=== PATIENT | male | born 1965 | race Caucasian/White ===

== ENCOUNTER 2017-11-09 08:56 | Day surgery (SDC) | payer OTHER ==
[~2017-11-09] VITALS: Ht 180.3 cm; Wt 103.4 kg
[~2017-11-09 08:56] MED LIST: ASPIRIN81 MG PO; MAXALT10 MG PO
[2017-11-09 11:19] VITALS: BP 97/58
== END 2017-11-09 11:35 | disposition home or self-care (01) | DRG 392 ==
LOC: ENDO 08:56
PROVIDERS: ATTEND Internal Medicine Gastroenterology
PROC: 0DB48ZX Excision of Esophagogastric Junction, Via Natural or Artificial Opening Endoscopic, Diagnostic (ICD-10-PCS; principal; 2017-11-09)
PROC: 0DJD8ZZ Inspection of Lower Intestinal Tract, Via Natural or Artificial Opening Endoscopic (ICD-10-PCS; 2017-11-09)
DX: R14.0 Abdominal distension (gaseous) (principal); K21.9 Gastro-esophageal reflux disease without esophagitis; K44.9 Diaphragmatic hernia without obstruction or gangrene; K57.30 Diverticulosis of large intestine without perforation or abscess without bleeding; K64.8 Other hemorrhoids; K29.70 Gastritis, unspecified, without bleeding; K64.4 Residual hemorrhoidal skin tags; Z87.11 Personal history of peptic ulcer disease; Z80.0 Family history of malignant neoplasm of digestive organs

== ENCOUNTER 2018-06-14 16:54 | Emergency (ER) | payer OTHER ==
[~2018-06-14] VITALS: Ht 180.3 cm; Wt 100.0 kg
[2018-06-14] MEDS ORDERED: LISINOPRIL10 MG PO (17:06)
[2018-06-14 17:30] LABS: HEMATOCRIT 45.6 % (39.0-50.0); HEMOGLOBIN 15.5 g/dl (14.0-18.0); IMMATURE GRANULOCYTES 0.1 % (0.0-5.0); MEAN CELL VOLUME 91.9 fL CALC (80.0-100.0); MEAN CORPUSCULAR HGB 31.3 pG CALC (26.0-32.0); NEUT# 4.56 thou/uL (1.82-7.42); RED BLOOD COUNT 4.96 mill/uL (4.70-6.10); RED CELL DISTRI WIDTH 12.8 % (11.5-15.5)
[2018-06-14 17:48] LABS: ANION GAP 13 (6-22 (CALC)); BUN 15 mg/dL (9-20); BUN/CREATININE RATIO 14 (12-20 (CALC)); CARBON DIOXIDE 26 mmol/l (22-30); CHLORIDE 104 mmol/l (95-108); CREATININE 1.1 mg/dL (0.7-1.3); GFR > 60 ML/MIN (>=60 (CALC)); GFR FOR AFR.AMER. > 60 ML/MIN (>=60 (CALC)); POTASSIUM 4.3 mmol/l (3.5-5.1); SODIUM 140 mmol/l (137-146)
[2018-06-14 18:53] LABS: TSH, 3RD GENERATION 1.58 uIU/mL (0.47 - 4.68)
[2018-06-14 19:40] VITALS: BP 103/57
== END 2018-06-14 19:55 | disposition home or self-care (01) | DRG 948 ==
LOC: ED 16:54
PROVIDERS: Family Medicine
DX: R53.83 Other fatigue (principal); I10 Essential (primary) hypertension; R51 Headache

== ENCOUNTER 2019-12-15 10:05 | Observation (INO) | payer OTHER ==
[~2019-12-15] VITALS: Ht 180.3 cm; Wt 98.9 kg
[~2019-12-15 10:05] MED LIST changes: +LISINOPRIL10 MG PO
--- NOTE | 2019-12-15 10:25 | NUR ---
to room 10 via wc in stablwe condition.
[2019-12-15] MEDS ORDERED: NORVASC5 M1 PO (10:26)
[2019-12-15] MEDS ORDERED: CARVEDILOL6.25 MG PO (10:26)
[2019-12-15] MEDS ORDERED: LASIX20 MG PO (10:27)
[2019-12-15] MEDS ORDERED: LEXAPRO10 MG PO (10:28)
[2019-12-15 10:39] LABS: HEMATOCRIT 44.3 % (39.0-50.0); HEMOGLOBIN 15.2 g/dl (14.0-18.0); IMMATURE GRANULOCYTES 0.2 % (0.0-5.0); MEAN CELL VOLUME 89.5 fL CALC (80.0-100.0); MEAN CORPUSCULAR HGB 30.7 pG CALC (26.0-32.0); MEAN CORPUSCULAR HGB CONC 34.3 g/dL CAL (32.0-36.0); NEUT# 2.75 thou/uL (1.82-7.42); RED BLOOD COUNT 4.95 mill/uL (4.70-6.10)
--- NOTE | 2019-12-15 10:49 | NUR ---
PT RESTING ON STRETCHER. MONITORS IN PLACE. PT REPORTS PAIN FREE AT THIS TIME BUT CAME TO ED FOR SHARP INTERMITTENT CHEST PAIN WITH NAUSEA THIS MORNING. PT AO X 3. SKIN PINK WARM AND DRY. DAUGHTER AT BEDSIDE
[2019-12-15 10:53] LABS: ALBUMIN 4.8 g/dL (3.2-5.0); ALKALINE PHOSPHATASE 58 u/l (38-126); ANION GAP 12 (6-22 (CALC)); BILIRUBIN, TOTAL 0.8 mg/dL (0.0-1.4); BUN 14 mg/dL (9-20); BUN/CREATININE RATIO 13 (12-20 (CALC)); CARBON DIOXIDE 26 mmol/l (22-30); CHLORIDE 100 mmol/l (95-108); CREATININE 1.1 mg/dL (0.7-1.3); GFR > 60 ML/MIN (>=60 (CALC)); GFR FOR AFR.AMER. > 60 ML/MIN (>=60 (CALC)); POTASSIUM 4.2 mmol/l (3.5-5.1); SGOT/AST 37 u/l (17-59); SODIUM 134 mmol/l (137-146); TOTAL PROTEIN 8.1 g/dL (6.3-8.2)
[2019-12-15 10:54] LABS: AMYLASE 61 u/l (30-110); LIPASE 112 u/l (23-300)
[2019-12-15 11:05] LABS: MYOGLOBIN 69 ng/mL (0 - 121)
[2019-12-15 11:52] LABS: URINE BILIRUBIN - DIPSTICK NEGATIVE (NEGATIVE); URINE BLOOD DIPSTICK NEGATIVE (NEGATIVE); URINE COLOR YELLOW; URINE GLUCOSE - DIPSTICK NEGATIVE (NEGATIVE); URINE KETONE NEGATIVE (NEGATIVE); URINE LEUK ESTERASE NEGATIVE (NEGATIVE); URINE NITRITE - DIPSTICK NEGATIVE (Negative); URINE PH 7.5 (4.5-8.0); URINE PROTEIN - DIPSTICK NEGATIVE (NEG-TRACE); URINE SPECIFIC GRAVITY 1.015; URINE UROBILINOGEN - DIPSTICK 0.2 E.U./dL (0.2)
--- NOTE | 2019-12-15 12:30 | NUR ---
SPOKE TO PATIENT'S REGARDING VISITING HOURS.
--- NOTE | 2019-12-15 12:45 | NUR ---
PT GIVEN LUNCH TRAY
--- NOTE | 2019-12-15 13:44 | NUR ---
MED SURG UNABLE TO TAKE REPORT AT THIS TIME
--- NOTE | 2019-12-15 14:02 | NUR ---
REPORT GIVEN TO MAU CELESTININSURANCE ADJUSTER
--- NOTE | 2019-12-15 14:16 | NUR ---
PT TO MED SURG ROOM 267 VIA WHEELCHAIR ACCOMPANIED BY ER NURSE. PT AMBULATED TO BED WITH STEADY GAIT. PT IS ALERT AND ORIENTED X3. ADMISSION ASSESSMENT COMPLETED AT THIS TIME. IV PATENT X1. ORIENTED PT TO ROOM AND UNIT. CALL LIGHT IN REACH. WILL CONTINUE TO MONITOR
--- NOTE | 2019-12-15 14:20 | NUR ---
PT TAKEN VIA WHEELCHAIR TO MED SURG. TELEMETRY IN PLACE
[2019-12-15 14:30] VITALS: BP 124/73
--- NOTE | 2019-12-15 16:03 | NUR ---
PT SITTING UP IN BED WATCHING TV. RESP ARE EVEN AND UNLABORED. NO DISTRESS NOTED. CALL LIGHT IN REACH. WILL CONTINUE TO MONITOR.
--- NOTE | 2019-12-15 16:05 | NUR ---
PT TO RADIOLOGY VIA WHEELCHAIR IN STABLE CONDITION.
--- NOTE | 2019-12-15 16:25 | NUR ---
PT RETURNED FROM RADIOLOGY VIA WHEELCHAIR AT THIS TIME
[2019-12-15 19:06] VITALS: BP 99/65
--- NOTE | 2019-12-15 19:50 | NUR ---
ASSESSMENT COMPLETED. AT BEDSIDE. NO RESP DISTRESS NOTED. PT. C/O ACID REFLUX AND DENIES CP. UPDATED ON POC. PT. REPORTS HE TAKES LEXAPRO AT NIGHT NOT IN AM, WILL ADDRESS THIS. IV SITE PATENT AND INFUSING ORDERED IVF WELL. ENCOURAGED TO CALL FOR ANY NEEDS. CALL LIGHT IS IN REACH. WILL CONTINUE TO MONITOR.
[2019-12-15 20:53] VITALS: BP 102/62
[2019-12-15 23:56] VITALS: BP 98/60
--- NOTE | 2019-12-16 00:05 | NUR ---
DENIES NEEDS/PAIN. PHLEBOTOMY IN AT BEDSIDE. ENCOURAGED TO CALL FOR ANY NEEDS.
--- NOTE | 2019-12-16 03:55 | NUR ---
RESTING IN BED WITH EYES CLOSED; RESP. EVEN AND UNLABORED. CALL LIGHT IS IN REACH.
[2019-12-16 04:52] VITALS: BP 101/61
[2019-12-16 06:36] LABS: CHOLESTEROL HDL RATIO 3.1 (<4.4 (CALC))
--- NOTE | 2019-12-16 07:30 | NUR ---
REPORT RECEIVED FROM FAWAD CRAWFORD. PT RESTING IN BED SEMI FOWLERS; ALERT AND OREINTED. DENIES PAIN, DIZZINESS, SOB, NUMBNESS, AND NAUSEA. RESPIRATIONS EVEN AND UNLABORED ON ROOM AIR. DOES NOT REPORT ANY SYMPTOMS CURRENTLY. PT DOES HAVE FACIAL FLUSHING. LUNGS ARE CLEAR. VSS. IV FLUIDS INFUSING WITHOUT DIFFICULTY; IV SITE APPEARS HEALTHY. TELE ON. PLAN OF CARE REVIEWED. PT ENCOURAGED TO VERBALIZE CONCERNS. STATES UNDERSTANDING. SAFETY MEASURES IN PLACE. CALL LIGHT WITHIN REACH.
[2019-12-16 07:47] VITALS: BP 112/68
[2019-12-16 09:28] VITALS: BP 110/69
--- NOTE | 2019-12-16 09:29 | NUR ---
PT REPORTS A LIGHTHEADEDNESS AND DESCRIBES A "SWIMMING SENSATION" WHEN TURNING HEAD QUICKLY. DENIES DIZZINESS, SPINNING SENSATIONS, OR NAUSEA. AT BEDSIDE. DECLINES AMLODIPINE AND REQUESTS FOR HIS BP TO BE RETAKEN. BP 110/69 HR 63 SPO2 97%. STATES THAT HIS BLOOD PRESSURE IS USUALLY ALWAYS HIGH. INSTRUCTED TO USE CALL LIGHT FOR ASSISTANCE AND REINFORCED FALL PRECAUTIONS.
--- NOTE | 2019-12-16 10:00 | NUR ---
DR. GRAY AT BEDSIDE FOR EVAL AND TO DISCUSS DISCHARGE PLANS.
[2019-12-16 11:05] VITALS: BP 120/67
[2019-12-16] MEDS ORDERED: PANTOPRAZOLE SO40 M1 PO (12:12)
[2019-12-16] MEDS ORDERED: HYDROCHLOROT12.5 MG PO (12:12)
--- NOTE | 2019-12-16 12:46 | NUR ---
IV site discontinued, cath intact. No edema , no redness, voices no discomfort.
--- NOTE | 2019-12-16 13:00 | NUR ---
Discharge instructions given. Patient verbalizes understanding of same. Discharged in stable condition via Ambulatory to Home with spouse. All belongings sent with pt.
== END 2019-12-16 13:00 | disposition home or self-care (01) | DRG 313 ==
LOC: ED 10:05 → ED-I 11:57 → ED 12:07 → ED-I 12:08 → MS2 13:29
PROVIDERS: Emergency Medicine; ADMIT Internal Medicine; ATTEND Internal Medicine
DX: R07.9 Chest pain, unspecified (principal); I10 Essential (primary) hypertension; K21.9 Gastro-esophageal reflux disease without esophagitis; R42 Dizziness and giddiness; K44.9 Diaphragmatic hernia without obstruction or gangrene; R11.0 Nausea; R61 Generalized hyperhidrosis; R41.0 Disorientation, unspecified; Z87.11 Personal history of peptic ulcer disease; Z20.828 Contact with and (suspected) exposure to other viral communicable diseases
CPT/HCPCS: G0378; S0164